=== PATIENT | female | born 1960 | race Caucasian/White ===

== ENCOUNTER → 2018-03-19 | Outpatient (CLI) | payer BC | END | disposition home or self-care (01) | LOC: CFH 08:50 | PROVIDERS: ATTEND Genetic Counselor, MS | DX: Z12.31 Encounter for screening mammogram for malignant neoplasm of breast (principal) | CPT/HCPCS: 77067 ==

== ENCOUNTER → 2019-04-09 | Outpatient (CLI) | payer BC | END | disposition home or self-care (01) | LOC: CFH 15:19 | PROVIDERS: ATTEND Genetic Counselor, MS | DX: Z12.31 Encounter for screening mammogram for malignant neoplasm of breast (principal) | CPT/HCPCS: 77067 ==

== ENCOUNTER → 2020-04-13 | Outpatient (CLI) | payer BC, OTHER | END | disposition home or self-care (01) | LOC: CFH 09:50 | PROVIDERS: ATTEND Genetic Counselor, MS | DX: Z12.31 Encounter for screening mammogram for malignant neoplasm of breast (principal) | CPT/HCPCS: 77063; 77067 ==

== ENCOUNTER → 2020-08-11 | Outpatient (CLI) | payer OTHER ==
[~2020-08-11] MED LIST: ASPI81TA45 PO; ATOR40TA78 PO; BUPR150T73 PO; CITA20TA6 PO; ERGO500017 PO; LISI-167 PO; METO-93 PO; OMEP-110 PO
[2020-08-11 17:00] LABS: BASOPHILS % (AUTO) 1 % (0-1); EOSINOPHILS % (AUTO) 2 % (1-7); LYMPHOCYTES % (AUTO) 32 % (22-44); MEAN CORPUSCULAR HEMOGLOBIN 28.6 pg (27.0-34.8); MEAN CORPUSCULAR HGB CONC 33.5 g/dL (32.4-35.8); MEAN PLATELET VOLUME 8.2 fL (7.4-10.4); MONOCYTES % (AUTO) 6 % (2-9); NEUTROPHILS % (AUTO) 60 % (42-75); PLATELET COUNT 356 x10^3/uL (130-400); RED BLOOD COUNT 4.36 x10^6/uL (3.82-5.3); RED CELL DISTRIBUTION WIDTH 14.3 % (9.6-15.2)
[2020-08-11 17:01] LABS: MD NO
[2020-08-11 17:05] LABS: MICROSCOPIC AUTO
[2020-08-11 17:12] LABS: ALANINE AMINOTRANSFERASE 19 U/L (12-78); ALBUMIN 3.8 g/dL (3.4-5.0); ANION GAP 5 mmol/L (5-15); CALCIUM 9.2 mg/dL (8.5-10.1); CHLORIDE 105 mmol/L (98-107); CREATININE 0.74 mg/dL (0.55-1.02); INTERNATIONAL NORMALIZED RATIO 0.96 (0.93-1.1); PROTHROMBIN TIME 10.3 Seconds (9.6-11.5)
[2020-08-11 17:14] LABS: ALKALINE PHOSPHATASE 102 U/L (45-117); BILIRUBIN,TOTAL 0.2 mg/dL (0.2-1.0); TOTAL PROTEIN 7.3 g/dL (6.4-8.2)
== END | disposition home or self-care (01) ==
LOC: STAR 15:14
PROVIDERS: ATTEND Neurological Surgery
DX: Z01.810 Encounter for preprocedural cardiovascular examination (principal); Z01.811 Encounter for preprocedural respiratory examination; M54.5 Low back pain; M48.061 Spinal stenosis, lumbar region without neurogenic claudication; M47.26 Other spondylosis with radiculopathy, lumbar region; R79.1 Abnormal coagulation profile; R82.90 Unspecified abnormal findings in urine; R94.31 Abnormal electrocardiogram [ECG] [EKG]; R00.1 Bradycardia, unspecified; Z20.822 Contact with and (suspected) exposure to COVID-19
CPT/HCPCS: 36415; 71046; 80053; 81001; 85025; 85610; 85730; 87086; 93005; U0003

== ENCOUNTER 2020-08-17 05:35 | Inpatient (IN) | payer OTHER ==
[~2020-08-17] VITALS: Ht 157.5 cm; Wt 90.8 kg
[2020-08-17] MEDS ORDERED: LIDOCAINE-MPF 1%, 2ML INFIL ONE (06:30)
[2020-08-17] MEDS ORDERED: CHLORHEXIDINE 15 ML UDC PO ONE (06:30)
[2020-08-17] MEDS ORDERED: LACTATED RINGERS 1,000 ML IV SCH (06:30)
[2020-08-17] MEDS ORDERED: BUPIVACAINE/PF 0.5% ONE (06:33)
[2020-08-17] MEDS ORDERED: BACITRACIN 50,000 UNIT ONE (06:33)
[2020-08-17] MEDS ORDERED: EPINEPHRINE 1 MG/ML, 1ML ONE (06:33)
[2020-08-17] MEDS ORDERED: MIDAZOLAM 1 MG/ML, 2ML ONE (06:41)
[2020-08-17] MEDS ORDERED: PROPOFOL 10 MG/ML, 20ML ONE (06:57)
[2020-08-17] MEDS ORDERED: ROCURONIUM 10 MG/ML,10ML ONE (06:57)
[2020-08-17] MEDS ORDERED: ONDANSETRON 2MG/ML, 2ML ONE (06:57)
[2020-08-17] MEDS ORDERED: CEFAZOLIN 1,000 MG ONE (06:57)
[2020-08-17] MEDS ORDERED: SUCCINYLCHOLINE 20 MG/ML, 10ML ONE (06:57)
[2020-08-17] MEDS ORDERED: DEXAMETHASONE 4 MG/ML, 1ML ONE (06:57)
[2020-08-17] MEDS ORDERED: FENTANYL PF 250 MCG/5ML ONE (07:35)
[2020-08-17] MEDS ORDERED: HEPARIN 1,000 UNITS/ML, 30ML IVPB ONE (07:44)
[2020-08-17] MEDS ORDERED: MEPERIDINE/PF 25MG/ML,1ML ONE (08:46)
[2020-08-17] MEDS ORDERED: hydrALAzine 20 MG/ML, 1ML IV PRN (09:00)
[2020-08-17] MEDS ORDERED: LORazepam 1MG TABLET PO PRN (09:00)
[2020-08-17] MEDS ORDERED: DIAZEPAM 5 MG/ML, 2ML IV PRN ×2 (09:00)
[2020-08-17] MEDS ORDERED: ALBUTEROL SULFATE 2.5 MG/3 ML NPPB PRN (09:00)
[2020-08-17] MEDS ORDERED: DIPHENHYDRAMINE 50 MG/ML, 1ML IM PRN (09:00)
[2020-08-17] MEDS ORDERED: PHARMACY MAY ADJ FOR RENAL FX MC PRN (09:00)
[2020-08-17] MEDS ORDERED: PROMETHAZINE 25 MG/ML, 1ML IV PRN (09:00)
[2020-08-17] MEDS ORDERED: LABETALOL 5MG/ML, 20ML IV PRN (09:00)
[2020-08-17] MEDS ORDERED: FENTANYL PF 100 MCG/2ML IV PRN (09:00)
[2020-08-17] MEDS ORDERED: MAGNESIUM HYDROXIDE 8%, 30ML UDC PO PRN (09:00)
[2020-08-17] MEDS ORDERED: DIPHENHYDRAMINE 50 MG/ML, 1ML IVPush PRN (09:00)
[2020-08-17] MEDS ORDERED: ERGOCALCIFEROL 50,000 UNIT CAPSULE PO SCH (09:00)
[2020-08-17] MEDS ORDERED: OXYcodone 5 MG/5 ML ORAL.SOL UDC PO PRN (09:00)
[2020-08-17] MEDS ORDERED: HYDROcodone/APAP 10/325 MG TABLET PO PRN (09:00)
[2020-08-17] MEDS ORDERED: HYDROmorphone 1 MG/ML, 1ML INJ IV PRN (09:00)
[2020-08-17] MEDS ORDERED: MEPERIDINE/PF 25MG/0.5ML IVPush PRN (09:00)
[2020-08-17] MEDS ORDERED: KETOROLAC 30 MG/1 ML IV PRN (09:00)
[2020-08-17] MEDS ORDERED: HYDROmorphone 2MG TABLET PO PRN (09:00)
[2020-08-17] MEDS: METOPROLOL SUCCINATE 50 MG TAB.ER.24H PO SCH (09:00)
[2020-08-17] MEDS ORDERED: DIPHENHYDRAMINE 50 MG CAPSULE PO PRN (09:00)
[2020-08-17] MEDS ORDERED: METOCLOPRAMIDE 5 MG/ML, 2ML IV PRN (09:00)
[2020-08-17] MEDS ORDERED: BISACODYL 10 MG SUPP PR PRN (09:00)
[2020-08-17] MEDS: LABETALOL 5MG/ML 40ML VIAL IVPush SCH ×2 (09:00→15:14)
[2020-08-17] MEDS ORDERED: METHOCARBAMOL 1,000 MG in DEXTROSE 5% 100 ML IV ONE ×2 (09:00→09:30)
[2020-08-17] MEDS ORDERED: PROMETHAZINE 25 MG/ML, 1ML IM PRN (09:00)
[2020-08-17] MEDS ORDERED: ONDANSETRON 2MG/ML, 2ML IVPush PRN (09:00)
[2020-08-17] MEDS: CITALOPRAM 20 MG TABLET PO SCH (11:12)
[2020-08-17] MEDS: NS + 20MEQ KCL 1,000 ML IV SCH ×2 (11:12→21:00)
[2020-08-17] MEDS: OMEPRAZOLE 20 MG CAPSULE.DR PO SCH (11:12)
[2020-08-17] MEDS: SODIUM CHLORIDE FLUSH 10ML SYR IVF SCH ×2 (11:12→22:08)
[2020-08-17] MEDS: BUPROPION SR 150 MG TABLET PO SCH (11:12)
[2020-08-17] MEDS: LISINOPRIL 10 MG TABLET PO SCH (11:17)
[2020-08-17 11:18] VITALS: BP 129/78
[2020-08-17] MEDS: HYDROcodone/APAP 5/325 TABLET PO PRN ×3 (11:59→22:07)
[2020-08-17 12:59] VITALS: BP 118/74
[2020-08-17] MEDS: CEFAZOLIN PMX 1GM/50ML 50 ML IVPB SCH ×2 (15:01→23:22)
[2020-08-17] MEDS: ONDANSETRON 2MG/ML, 2ML IVPush PRN ×2 (15:13→22:07)
[2020-08-17] MEDS ORDERED: METHOCARBAMOL 750 MG in DEXTROSE 5% 100 ML IV PRN (17:00)
[2020-08-17] MEDS ORDERED: ENOXAPARIN 40 MG/0.4 ML SQ SCH (18:00)
[2020-08-17] MEDS: SENNA/DOCUSATE TABLET PO PRN (18:06)
[2020-08-17 18:40] VITALS: BP 103/50
[2020-08-17] MEDS: ATORVASTATIN 40 MG TABLET PO SCH (22:07)
[2020-08-17 23:41] VITALS: BP 102/60
[2020-08-18] MEDS: LABETALOL 5MG/ML 40ML VIAL IVPush SCH ×4 (01:00→18:00)
[2020-08-18] MEDS ORDERED: METHOCARBAMOL 750 MG TABLET ONE (03:04)
[2020-08-18 03:12] VITALS: BP 99/62
[2020-08-18] MEDS: HYDROcodone/APAP 5/325 TABLET PO PRN ×3 (03:15→20:29)
[2020-08-18 05:18] LABS: BASOPHILS % (AUTO) 0 % (0-1); EOSINOPHILS % (AUTO) 0 % (1-7); LYMPHOCYTES % (AUTO) 13 % (22-44); MEAN CORPUSCULAR HEMOGLOBIN 28.8 pg (27.0-34.8); MEAN CORPUSCULAR HGB CONC 33.3 g/dL (32.4-35.8); MEAN PLATELET VOLUME 8.3 fL (7.4-10.4); MONOCYTES % (AUTO) 12 % (2-9); NEUTROPHILS % (AUTO) 75 % (42-75); PLATELET COUNT 272 x10^3/uL (130-400); RED BLOOD COUNT 3.53 x10^6/uL (3.82-5.3); RED CELL DISTRIBUTION WIDTH 14.5 % (9.6-15.2)
[2020-08-18 05:23] LABS: MD NO
[2020-08-18 05:25] LABS: ALBUMIN 2.8 g/dL (3.4-5.0); CALCIUM 8.1 mg/dL (8.5-10.1); CREATININE 0.66 mg/dL (0.55-1.02)
[2020-08-18] MEDS: NS + 20MEQ KCL 1,000 ML IV SCH ×3 (05:46→23:05)
[2020-08-18 05:48] LABS: ANION GAP 8 mmol/L (5-15); CHLORIDE 111 mmol/L (98-107)
[2020-08-18] MEDS ORDERED: EPINEPHRINE 1 MG/ML, 1ML ONE (06:26)
[2020-08-18] MEDS ORDERED: VANCOMYCIN 1,000 MG ONE (06:26)
[2020-08-18] MEDS ORDERED: BACITRACIN 50,000 UNIT ONE (06:26)
[2020-08-18] MEDS ORDERED: BUPIVACAINE/PF 0.5% ONE (06:26)
[2020-08-18 07:28] VITALS: BP 109/59
[2020-08-18] MEDS: ONDANSETRON 2MG/ML, 2ML IVPush PRN (07:51)
[2020-08-18] MEDS: LISINOPRIL 10 MG TABLET PO SCH (09:00)
[2020-08-18] MEDS: CITALOPRAM 20 MG TABLET PO SCH (09:00)
[2020-08-18] MEDS: SODIUM CHLORIDE FLUSH 10ML SYR IVF SCH ×3 (09:00→20:18)
[2020-08-18] MEDS: OMEPRAZOLE 20 MG CAPSULE.DR PO SCH (10:06)
[2020-08-18] MEDS: METOPROLOL SUCCINATE 50 MG TAB.ER.24H PO SCH (10:07)
[2020-08-18] MEDS: BUPROPION SR 150 MG TABLET PO SCH (10:08)
[2020-08-18 10:10] VITALS: BP 121/72
[2020-08-18 13:49] VITALS: BP 105/50
[2020-08-18] MEDS ORDERED: CHLORHEXIDINE 15 ML UDC ONE (14:18)
[2020-08-18] MEDS ORDERED: CHLORHEXIDINE 15 ML UDC PO ONE (14:30)
[2020-08-18] MEDS ORDERED: FENTANYL PF 100 MCG/2ML ONE ×2 (14:55→18:29)
[2020-08-18] MEDS ORDERED: MIDAZOLAM 1 MG/ML, 2ML ONE (14:55)
[2020-08-18] MEDS ORDERED: FENTANYL PF 250 MCG/5ML ONE (14:56)
[2020-08-18] MEDS ORDERED: PROPOFOL 100 ML ONE (14:56)
[2020-08-18] MEDS ORDERED: PROPOFOL 10 MG/ML, 20ML ONE (15:04)
[2020-08-18] MEDS ORDERED: CEFAZOLIN 1,000 MG ONE (15:04)
[2020-08-18] MEDS ORDERED: DEXAMETHASONE 4 MG/ML, 1ML ONE (15:04)
[2020-08-18] MEDS ORDERED: GLYCOPYRROLATE 0.2MG/1ML, 5ML ONE (15:04)
[2020-08-18] MEDS ORDERED: NEOSTIGMINE 1 MG/ML, 10ML ONE (15:04)
[2020-08-18] MEDS ORDERED: ONDANSETRON 2MG/ML, 2ML ONE (15:04)
[2020-08-18] MEDS ORDERED: ROCURONIUM 10MG/ML,5ML ONE (15:04)
[2020-08-18] MEDS ORDERED: SCOPOLAMINE 1MG PATCH TD ONE (15:56)
[2020-08-18] MEDS ORDERED: SUGAMMADEX 200 MG/2 ML IVPush ONE (16:18)
[2020-08-18] MEDS ORDERED: BUPIVACAINE/PF-EPI 0.5% 1:200K INFIL ONE (16:52)
[2020-08-18] MEDS ORDERED: LORazepam 2 MG/ML, 1ML IVPush PRN (18:00)
[2020-08-18] MEDS ORDERED: LORazepam 1MG TABLET PO PRN (18:00)
[2020-08-18] MEDS ORDERED: ACETAMINOPHEN 325 MG TABLET PO PRN (18:00)
[2020-08-18] MEDS ORDERED: HYDROmorphone 2MG TABLET PO PRN (18:00)
[2020-08-18] MEDS ORDERED: PROMETHAZINE 25 MG SUPP PR PRN (18:00)
[2020-08-18] MEDS ORDERED: LABETALOL 5MG/ML, 20ML IVPush PRN (18:00)
[2020-08-18] MEDS ORDERED: OXYcodone 5 MG/5 ML ORAL.SOL UDC PO PRN (18:00)
[2020-08-18] MEDS ORDERED: LABETALOL 5MG/ML, 20ML IV PRN (18:00)
[2020-08-18] MEDS ORDERED: PROMETHAZINE 25 MG/ML, 1ML IVPush PRN (18:00)
[2020-08-18] MEDS ORDERED: HYDROmorphone 1 MG/ML, 1ML INJ IVPush PRN (18:00)
[2020-08-18] MEDS ORDERED: METHOCARBAMOL 1,000 MG in DEXTROSE 5% 100 ML IV PRN (18:00)
[2020-08-18] MEDS ORDERED: ONDANSETRON 2MG/ML, 2ML IVPush PRN ×2 (18:00)
[2020-08-18] MEDS ORDERED: HALOPERIDOL 5 MG/ML IV PRN (18:00)
[2020-08-18] MEDS ORDERED: KETOROLAC 30 MG/1 ML IVPush ONE (18:00)
[2020-08-18] MEDS ORDERED: PHARMACY MAY ADJ FOR RENAL FX MC PRN (18:00)
[2020-08-18] MEDS ORDERED: hydrALAzine 20 MG/ML, 1ML IV PRN (18:00)
[2020-08-18] MEDS: FENTANYL PF 100 MCG/2ML IV PRN ×2 (18:31→18:40)
[2020-08-18 19:31] VITALS: BP 131/61
[2020-08-18] MEDS: ATORVASTATIN 40 MG TABLET PO SCH (20:29)
[2020-08-18 23:23] VITALS: BP 112/48
[2020-08-19] MEDS: CEFAZOLIN PMX 1GM/50ML 50 ML IVPB SCH ×2 (00:03→08:08)
[2020-08-19] MEDS: NS + 20MEQ KCL 1,000 ML IV SCH ×2 (00:03→12:20)
[2020-08-19] MEDS: LABETALOL 5MG/ML 40ML VIAL IVPush SCH ×2 (00:48→02:00)
[2020-08-19 02:56] VITALS: BP 116/55
[2020-08-19] MEDS ORDERED: METHOCARBAMOL 750 MG TABLET ONE (03:14)
[2020-08-19] MEDS: METHOCARBAMOL 750 MG TABLET PO SCH ×3 (03:16→20:19)
[2020-08-19] MEDS: HYDROcodone/APAP 5/325 TABLET PO PRN (03:16)
[2020-08-19 05:55] LABS: BASOPHILS % (AUTO) 0 % (0-1); EOSINOPHILS % (AUTO) 0 % (1-7); LYMPHOCYTES % (AUTO) 11 % (22-44); MD NO; MEAN CORPUSCULAR HEMOGLOBIN 29.1 pg (27.0-34.8); MEAN CORPUSCULAR HGB CONC 33.2 g/dL (32.4-35.8); MEAN PLATELET VOLUME 8.1 fL (7.4-10.4); MONOCYTES % (AUTO) 11 % (2-9); NEUTROPHILS % (AUTO) 79 % (42-75); PLATELET COUNT 234 x10^3/uL (130-400); RED BLOOD COUNT 3.33 x10^6/uL (3.82-5.3); RED CELL DISTRIBUTION WIDTH 14.6 % (9.6-15.2)
[2020-08-19] MEDS: ENOXAPARIN 40 MG/0.4 ML SQ SCH (05:56)
[2020-08-19 07:32] VITALS: BP 124/66
[2020-08-19] MEDS: BUPROPION SR 150 MG TABLET PO SCH (08:02)
[2020-08-19] MEDS: OMEPRAZOLE 20 MG CAPSULE.DR PO SCH (08:02)
[2020-08-19] MEDS: CITALOPRAM 20 MG TABLET PO SCH (08:02)
[2020-08-19] MEDS: METOPROLOL SUCCINATE 50 MG TAB.ER.24H PO SCH (08:02)
[2020-08-19] MEDS: LISINOPRIL 10 MG TABLET PO SCH (08:04)
[2020-08-19] MEDS: OXYcodone/APAP 10/325MG TABLET PO PRN ×3 (08:31→20:19)
[2020-08-19] MEDS: SODIUM CHLORIDE FLUSH 10ML SYR IVF SCH ×2 (09:00→20:18)
[2020-08-19] MEDS: DEXAMETHASONE 4 MG/ML, 1ML IVPush SCH ×3 (10:30→20:18)
[2020-08-19 10:33] VITALS: BP 116/67
[2020-08-19 13:28] VITALS: BP 130/77
[2020-08-19] MEDS: SENNA/DOCUSATE TABLET PO PRN (15:42)
[2020-08-19] MEDS ORDERED: METHOCARBAMOL 750 MG TABLET PO SCH (17:00)
[2020-08-19] MEDS: ATORVASTATIN 40 MG TABLET PO SCH (20:18)
[2020-08-19 20:51] VITALS: BP 109/70
[2020-08-20] MEDS: NS + 20MEQ KCL 1,000 ML IV SCH (01:40)
[2020-08-20] MEDS: METHOCARBAMOL 750 MG TABLET PO SCH ×2 (03:05→11:41)
[2020-08-20] MEDS: OXYcodone/APAP 10/325MG TABLET PO PRN ×2 (03:06→09:33)
[2020-08-20 03:19] VITALS: BP 134/68
[2020-08-20 05:42] LABS: BASOPHILS % (AUTO) 0 % (0-1); EOSINOPHILS % (AUTO) 0 % (1-7); LYMPHOCYTES % (AUTO) 7 % (22-44); MEAN CORPUSCULAR HEMOGLOBIN 28.8 pg (27.0-34.8); MEAN PLATELET VOLUME 8.2 fL (7.4-10.4); MONOCYTES % (AUTO) 9 % (2-9); NEUTROPHILS % (AUTO) 84 % (42-75); PLATELET COUNT 240 x10^3/uL (130-400); RED CELL DISTRIBUTION WIDTH 14.2 % (9.6-15.2)
[2020-08-20] MEDS: ENOXAPARIN 40 MG/0.4 ML SQ SCH (05:55)
[2020-08-20 06:08] LABS: MD NO
[2020-08-20 07:24] VITALS: BP 133/72
[2020-08-20] MEDS ORDERED: METH-640 PO (08:26)
[2020-08-20] MEDS ORDERED: OXYC-380 PO (08:26)
[2020-08-20] MEDS: BUPROPION SR 150 MG TABLET PO SCH (09:27)
[2020-08-20] MEDS: METOPROLOL SUCCINATE 50 MG TAB.ER.24H PO SCH (09:27)
[2020-08-20] MEDS: SODIUM CHLORIDE FLUSH 10ML SYR IVF SCH (09:27)
[2020-08-20] MEDS: SENNA/DOCUSATE TABLET PO PRN (09:27)
[2020-08-20] MEDS: CITALOPRAM 20 MG TABLET PO SCH (09:27)
[2020-08-20] MEDS: OMEPRAZOLE 20 MG CAPSULE.DR PO SCH (09:27)
[2020-08-20] MEDS: LISINOPRIL 10 MG TABLET PO SCH (09:27)
[2020-08-20 12:42] VITALS: BP 136/80
== END 2020-08-20 13:46 | disposition home health service (06) | DRG 460 ==
LOC: ORIP 05:35 → 4NE 10:34 → DCLOUNGE 08-20 13:26
PROVIDERS: ADMIT Neurological Surgery; ATTEND Neurological Surgery
PROC: 4A11X4G Monitoring of Peripheral Nervous Electrical Activity, Intraoperative, External Approach (ICD-10-PCS; 2020-08-17)
PROC: 0SG30A0 Fusion of Lumbosacral Joint with Interbody Fusion Device, Anterior Approach, Anterior Column, Open Approach (ICD-10-PCS; principal; 2020-08-17 07:00)
PROC: 0SG Lower Joints, Fusion (ICD-10-PCS; 2020-08-18)
PROC: 01NB4ZZ Release Lumbar Nerve, Percutaneous Endoscopic Approach (ICD-10-PCS; 2020-08-18)
PROC: 01N Peripheral Nervous System, Release (ICD-10-PCS; 2020-08-18)
PROC: 4A11X4G Monitoring of Peripheral Nervous Electrical Activity, Intraoperative, External Approach (ICD-10-PCS; 2020-08-18)
PROC: 8E0W4CZ Robotic Assisted Procedure of Trunk Region, Percutaneous Endoscopic Approach (ICD-10-PCS; 2020-08-18)
DX: M43.17 Spondylolisthesis, lumbosacral region (principal); M54.17 Radiculopathy, lumbosacral region; M48.07 Spinal stenosis, lumbosacral region
CPT/HCPCS: 36415; 72100; 74018; J3490; S0020; 72131; 80048; 82040; 85025; 86850; 86900; 95938; 95941; C1713; C1729; G0378; J0171; J0690; J1100; J1644; J1650; J2175; J2250; J2405; J2704; J2710; J3010; J3370; J3480; C1762; C1889; J0330; J2800; J7120